=== PATIENT | female | born 1980 ===

== ENCOUNTER 2021-03-23 10:49 | Emergency (ER) | payer SELFPAY ==
[~2021-03-23] VITALS: Ht 167.6 cm; Wt 108.9 kg
[2021-03-23] MEDS ORDERED: ONDANSETRON HCL 4 MG/2 ML VIAL IV ONE (11:15)
[2021-03-23] MEDS ORDERED: MORPHINE SULFATE 4 MG/ML SYR/VIAL IV ONE (11:15)
[2021-03-23 11:21] VITALS: BP 124/87
[2021-03-23] MEDS ORDERED: ceFAZolin 1GM VL ONE (11:29)
[2021-03-23] MEDS ORDERED: ceFAZolin 1GM/50ML 50 ML IV ONE (11:30)
[2021-03-23] MEDS ORDERED: STERILE WATER 10 ML ONE (11:30)
[2021-03-23] MEDS ORDERED: ceFAZolin IM 1GM/2.5ML STERILE WATER IM ONE (11:30)
== END 2021-03-23 15:17 | disposition short-term general hospital (02) ==
LOC: ER 10:49 → EDBD 10:49 → ER 15:17
DX: S52.531A Colles' fracture of right radius, initial encounter for closed fracture (principal); W19.XXXA Unspecified fall, initial encounter; Y93.89 Activity, other specified; Y92.89 Other specified places as the place of occurrence of the external cause; Y99.8 Other external cause status
CPT/HCPCS: 96372; 96374; 96375; 99285; J0690; J2270; J2405